=== PATIENT | male | born 1975 | race Caucasian/White ===

== ENCOUNTER → 2020-07-14 | Outpatient (CLI) | payer OTHER ==
--- NOTE | 2020-07-14 17:26 | ECHOF ---
Referral Reason:I10 hypertension MEASUREMENTS -------- HEIGHT: 170.2 cm WEIGHT: 74.8 kg BP: RVIDd: 2.6 cm (< 3.3) IVSd: 0.9 cm (0.6 - 1.1) LVIDd: 4.2 cm (3.9 - 5.3) LVPWd: 0.8 cm (0.6 - 1.1) IVSs: 1.3 cm LVIDs: 2.5 cm LVPWs: 1.3 cm LA Diam: 3.4 cm (2.7 - 3.8) LAESV Index (A-L): 17.70 ml/m Ao Diam: 2.7 cm (2.0 - 3.7) AV Cusp: 1.8 cm (1.5 - 2.6) LA Diam: 3.5 cm (2.7 - 3.8) MV EXCURSION: 17.007 mm (> 18.000) MV EF SLOPE: 79 mm/s (70 - 150) EPSS: 0.2 cm MV E Hill: 0.49 m/s MV DecT: 287 ms MV A Hill: 0.70 m/s MV E/A Ratio: 0.70 RAP: 5.00 mmHg RVSP: 16.77 mmHg FINDINGS -------- Sinus rhythm. This was a technically good study. LV size, wall thickness and systolic function are normal, with an EF greater than 55%. The left alden tricular size is normal. The right ventricle is normal in size. Normal LA size by volume 22+/-6 ml/m2. The right atrial size is normal. The aortic valve is trileaflet, and appears structurally normal. No aortic stenosis or regurgitation. Mild mitral regurgitation is present. Mild tricuspid regurgitation present. Right ventricular systolic pressure is normal at < 35 mmHg. There is no pulmonic regurgitation present. There is no pericardial effusion. CONCLUSIONS -------- 1. LV size, wall thickness and systolic function are normal, with an EF greater than 55%. 2. The left ventricular size is normal. 3. The right ventricle is normal in size. 4. Normal LA size by volume 22+/-6 ml/m2. 5. The right atrial size is normal. 6. The aortic valve is trileaflet, and appears structurally normal. No aortic stenosis or regurgitati on. 7. Mild mitral regurgitation is present. 8. Mild tricuspid regurgitation present. 9. There is no pericardial effusion. INSTRUMENTATION TECHNOLOGIST: Jenifer Gandara RDCS
== END ==
LOC: RADECHMAIN 12:03
PROVIDERS: ATTEND Family Medicine
DX: I10 Essential (primary) hypertension (principal); I08.1 Rheumatic disorders of both mitral and tricuspid valves
CPT/HCPCS: 93306

== ENCOUNTER → 2020-11-11 | Outpatient (CLI) | payer OTHER ==
--- NOTE | 2020-11-12 12:07 | US ---
EXAMINATION TYPE: US thyroid st tissue head/neck DATE OF EXAM: 11/11/2020 COMPARISON: NONE CLINICAL HISTORY: 44-year-old male L04.0 acute lymphadenitis of face, head and neck. TECHNIQUE: GLAND SIZE: Right Lobe: 4.9 x 1.1 x 1.6 cm Overall Parenchyma: homogenous Left Lobe: 4.5 x 1.1 x 1.4 cm Overall Parenchyma: homogeneous Isthmus Thickness: 0.3 cm NODULES RIGHT: # of nodules measured on right: 0 LEFT: # of nodules measured on left: 0 ISTHMUS: # of nodules measured in the isthmus: 0 Bilateral neck scanned, no evidence of lymphadenopathy. Conversion Developer notes: Scanning was performed over right lateral neck where patient felt palpable for a f ew weeks. No abnormality noted. IMPRESSION: 1. Normal appearance to the thyroid gland. No discrete nodules. 2. Additional targeted scanning over the lateral aspect of the right neck at the palpable site. No di screte sonographic abnormality is seen. Clinical follow-up is recommended. If any enlarging palpable abnormality, the area can be rescanned.
== END | disposition home or self-care (01) ==
LOC: RADUSWWP 16:21
PROVIDERS: ATTEND Family Medicine
DX: L04.0 Acute lymphadenitis of face, head and neck (principal)
CPT/HCPCS: 76536

== ENCOUNTER 2021-12-31 11:31 | Day surgery (SDC) | payer OTHER ==
[~2021-12-31 11:31] MED LIST: LACTATED RINGERS 1,000 ML IV SCH
[2021-12-31 12:44] VITALS: TEMP 97
[2021-12-31] MEDS ORDERED: PROPOFOL 10 MG/ML 20 ML VIAL IV ONE (13:23)
--- NOTE | 2021-12-31 13:48 | P.PCN ---
Date of Procedure: 12/31/21 Procedure(s) Performed: BRIEF HISTORY: Patient is a 46-year-old pleasant white male scheduled for an elective colonoscopy as a part of screening for colon cancer and family history of colon cancer.his brother was diagnosed with colon cancer at age 43. PROCEDURE PERFORMED: Colonoscopy with snare polypectomy. PREOPERATIVE DIAGNOSIS: screening for colon cancer and family history of colon cancer. IV sedation per Anesthesia. PROCEDURE: After informed consent was obtained, the patient, was brought into the endoscopy unit. IV sedation was administered by Anesthesia under continuous monitoring. Digital rectal examination was normal. Initially the Olympus CF-160 flexible video colonoscope was then inserted in the rectum, gradually advanced into the cecum without any difficulty. Careful examination was performed as the scope was gradually being withdrawn. Ileocecal valve and the appendiceal orifice were visualized and appeared normal. Prep was excellent. Mucosa of the cecum, ascending colon, transverse colon, descending colon, sigmoid colon, and rectum appeared normal. Tjere were 2 polyps noted in the rectum measuring 3 mm and 5 mm removed by snare polypectomy. Retroflexion was performed in the rectum and no lesions were seen. The patient tolerated the procedure well. IMPRESSION: 5 mm 2 rectal polyps status post polypectomy Rest of the colon appeared normal RECOMMENDATIONS: Findings of this examination were discussed with the patient as well as his family. He was advised to follow with the biopsy results and have a repeat colonoscopy in 5 years because of the family history of colon cancer.
[2021-12-31 13:54] VITALS: PULSE 80; RESP 16
[2021-12-31 14:07] VITALS: BP 133/90
== END 2021-12-31 14:33 | disposition home or self-care (01) ==
LOC: ORWHC2ENDO 11:31
PROVIDERS: ATTEND Internal Medicine Gastroenterology
DX: Z12.11 Encounter for screening for malignant neoplasm of colon (principal); D12.8 Benign neoplasm of rectum; I10 Essential (primary) hypertension; E78.5 Hyperlipidemia, unspecified; F41.9 Anxiety disorder, unspecified; Z79.899 Other long term (current) drug therapy; Z80.0 Family history of malignant neoplasm of digestive organs
CPT/HCPCS: 88305; 45385; J2704

== ENCOUNTER → 2022-04-27 | Outpatient (CLI) | payer OTHER ==
--- NOTE | 2022-04-27 09:51 | CT ---
EXAMINATION TYPE: CT chest abdomen w con DATE OF EXAM: 04/27/2022 COMPARISON: None. HISTORY: Right Testicular Cancer CT DLP: 705.80 mGycm. Automated Exposure Control for Dose Reduction was Utilized. CONTRAST: CT scan of the thorax and abdomen are performed with IV Contrast, patient injected with 100 ml mL of Isovue 300. FINDINGS: LUNGS: The lungs are grossly clear, there is no concerning greater than 5 mm parenchymal mass or nodu le identified. Slightly suboptimal due to overall mosaic attenuation. There is no pleural effusion or pneumothorax seen. The tracheobronchial tree is patent. MEDIASTINUM: There are no greater than 1 cm hilar or mediastinal lymph nodes. No pericardial effusi on is seen. Heart size upper limits of normal. OTHER: Bilateral subareolar flame-shaped gynecomastia is noted. LIVER/GB: Liver diffusely low dense suggesting diffuse fatty infiltration. PANCREAS: No significant abnormality is seen. SPLEEN: No significant abnormality is seen. ADRENALS: No significant abnormality is seen. KIDNEYS: No significant abnormality is seen. BOWEL: The oral contrast does not reach level of the terminal ileum. No suspicious small or large bow el dilatation. LYMPH NODES: Abnormal enlarged aortocaval lymph node measuring 1.9 x 1.5 cm axial image 42 correlates with lymph node coronal image 40 worrisome for neoplastic involvement. OSSEOUS STRUCTURES: No significant abnormality is seen. OTHER: No significant additional abnormality is seen. IMPRESSION: Presumed abnormal retroperitoneal lymph node in the mid to lower abdomen at the level of the PIPER origin presumed metastatic adenopathy. Finding can be confirmed with PET/CT. No suspicious n odules or lymph nodes in the thorax.
== END | disposition home or self-care (01) ==
LOC: RADCTMAIN 06:30
PROVIDERS: ATTEND Urology
DX: C62.11 Malignant neoplasm of descended right testis (principal)
CPT/HCPCS: 71260; 74160; Q9967 ×2